=== PATIENT | female | born 1955 | race African-American/Black ===

== ENCOUNTER 2019-06-18 21:50 | Inpatient (IN) | payer MEDICARE ==
[~2019-06-18 21:50] MED LIST: Iopamidol-370 76% 500 ML 1 ML ONE
--- NOTE | 2019-06-18 22:10 | CT ---
CT BRAIN NONCONTRAST: DATE: 06/18/2019 HISTORY: 64-year-old female with acute stroke symptoms: Aphasia and right-sided weakness. This level 1 stroke alert protocol report was called by Dr. Dahl to nurse practitioner Demarco Brizuela, who is working with Dr. Lincoln, at 10:06 PM 06/18/2019. FINDINGS: There is no evidence of acute intra-axial or extra-axial hemorrhage. There is no midline shift or any other mass effect. There is no extra-axial fluid collection. There is no evidence of obstructive hydrocephalus. Calvarium is intact. IMPRESSION: No acute intracranial findings.
[2019-06-18 22:18] LABS: #Basophils 0.1 thou/uL (0.0-0.2); #Eosinphils 0.1 thou/uL (0.0-0.7); #Lymphocytes 3.2 thou/uL (1.20-3.40); #Monocytes 0.6 thou/uL (0.11-0.59); #Neutrophils 3.3 thou/uL (1.40-6.50); %Basophils 1.2 % (0.0-1.0); %Eosinophils 0.9 % (0.0-10.0); %Lymphocytes 44.3 % (21.0-51.0); %Monocytes 8.4 % (0.0-10.0); %Neutrophils 45.4 % (42.0-75.0); Mean Corpuscular HGB CONC 33.7 g/dL (32.0-36.0); Mean Corpuscular Hemoglobin 31.2 pg (27.0-31.0); Mean Corpuscular Volume 92.5 fL (78.0-98.0); Mean Platelet Volume 10.1 fL (7.4-10.4); Platelet Count 213 thou/uL (130-400); RBC Distribution Width 11.5 % (11.5-14.5); White Blood Cell (WBC) Count 7.2 thou/uL (4.8-10.8)
[2019-06-18 22:19] LABS: INR-International Normal Ratio 0.8; PTT 20.3 SEC (22.9-36.1); Prothrombin Time 11.3 SEC (12.0-14.7)
[2019-06-18 22:35] LABS: ALT (SGPT) 13 U/L (8-55); AST (SGOT) 17 U/L (5-34); Albumin 4.6 g/dL (3.4-4.8); Alkaline Phosphatase 270 U/L (40-110); Anion Gap 18 mmol/L (10-20); BUN (Urea Nitrogen) 19 mg/dL (9.8-20.1); Bilirubin, Total 0.4 mg/dL (0.2-1.2); Calc. Creatinine Clearance 0 mL/min (70-130); Calcium 9.2 mg/dL (7.8-10.44); Carbon Dioxide 21 mmol/L (23-31); Chloride 97 mmol/L (98-107); Digoxin Less than 0.15 ng/mL (0.8-2.0); Estimated GFR-MDRD 37; Glucose 529 mg/dL (80-115); Potassium 5.1 mmol/L (3.5-5.1); Protein, Total 7.6 g/dL (6.0-8.3); Sodium 131 mmol/L (136-145)
--- NOTE | 2019-06-18 22:36 | CT ---
CT ANGIOGRAM NECK WITH CONTRAST CT ANGIOGRAM BRAIN WITH CONTRAST: DATE: 06/18/2019 10:16 PM HISTORY: 64-year-old female with acute stroke symptoms: Aphasia and right upper extremity weakness Dr. Dahl verbally gave the results of this stroke alert protocol to Dr. Lincoln at 10:33 PM 06/18/2019 TECHNIQUE: After IV contrast injection, arterial bolus chasing technique scan performed from AP window to vertex of head. Coronal and sagittal 3-D MIP reconstructions. 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 No high-grade stenosis, thrombosis, or occlusion of M1 segments of bilater al MCAs, A1 and A2 segments of bilateral ACAs, carotid siphons, basilar, intracranial vertebral, P1 segment left ENGINEERED WOOD DESIGNER, and P2 segments of bilateral handyman. No high-grade stenosis of left subclavian, brachiocephalic, bilateral common carotid, bilateral cervi zac internal carotid, or bilateral cervical vertebral, arteries. IMPRESSION:
[2019-06-18] MEDS ORDERED: Nitroglycerin 2% Ointment 1 INCH/1 GM Packet ONE (22:51)
[2019-06-18] MEDS ORDERED: Labetalol HCl 100 MG/20 ML VIAL ONE (22:55)
[2019-06-18 23:33] LABS: Hemoglobin A1c Greater than 14.0 % (4.0-6.0)
[2019-06-19] MEDS ORDERED: Insulin Regular 300 UNITS/3 ML VIAL ONE (00:21)
[2019-06-19 02:03] VITALS: BMI 23.5
[2019-06-19] MEDS ORDERED: hydrALAZINE 20 MG/ML VIAL SLOW IVP PRN (02:12)
[2019-06-19] MEDS ORDERED: Docusate 100 MG CAP PO PRN (02:12)
[2019-06-19] MEDS ORDERED: Labetalol HCl 100 MG/20 ML VIAL SLOW IVP PRN (02:12)
[2019-06-19] MEDS ORDERED: Milk Of Magnesia 30 ML UDCUP PO PRN (02:12)
[2019-06-19] MEDS ORDERED: Acetaminophen 650 MG Suppository PR PRN (02:12)
[2019-06-19] MEDS ORDERED: Bisacodyl 10 MG SUPP PR PRN (02:12)
[2019-06-19] MEDS ORDERED: niCARdipine 25 MG in Sodium Chloride 0.9% 250 ML 240 ML IVPB PRN (02:12)
[2019-06-19] MEDS ORDERED: Mag-Al 1200 mg/1200 mg/30 ML UDCUP PO PRN (02:12)
[2019-06-19] MEDS ORDERED: Sodium Chloride 0.9% 1,000 ML IV SCH (02:15)
[2019-06-19] MEDS ORDERED: Dextrose 5% in Water 1,000 ML IV PRN (02:16)
[2019-06-19] MEDS ORDERED: Ondansetron PF 4 MG/2 ML Vial IVP PRN (02:16)
[2019-06-19] MEDS ORDERED: Ondansetron ODT 4 MG TAB PO PRN (02:16)
[2019-06-19] MEDS ORDERED: Insulin Regular 300 UNITS/3 ML VIAL SC PRN (02:16)
[2019-06-19] MEDS ORDERED: Dextrose 50% Abboject 50 ML SYRINGE SLOW IVP PRN (02:16)
[2019-06-19] MEDS: Insulin Regular 300 UNITS/3 ML VIAL SC PRN ×2 (04:27→08:24)
[2019-06-19] MEDS: Communication Order-Pharmacy FS SCH (04:29)
--- NOTE | 2019-06-19 04:29 | HP ---
PRIMARY CARE PHYSICIAN: [facility]. CHIEF COMPLAINT: Stroke-like symptoms. HISTORY OF PRESENT ILLNESS: The patient is a 64-year-old female with hypertension, diabetes mellitus type 2, TIA in 2014, currently on 81 mg aspirin, presented to the emergency room by EMS with above complaints. The patient's symptoms started around 08:30 p.m. She was unable to speak. She also had some confusion at that time. There were no other obvious deficits reported. Her initial NIH by EMS was around 8. There was no chest pain, shortness of breath, palpitations, fever, or chills reported. The patient has a long history of diabetes and is trying to bring her blood sugar down with herbal medications. No headaches, seizure, or visual symptoms reported. In the emergency room, initial vital signs showed temperature 98.4, respiration of 16, pulse of 107, with a blood pressure of 191/95, O2 saturation 100% on room air. CT brain was negative. CT angiogram of the brain was negative for high-grade stenosis. tPA was started. However, the family requested to discontinue tPA. PAST MEDICAL HISTORY: 1. Diabetes mellitus type 2. 2. Hypertension. 3. TIA in 2014. PAST SURGICAL HISTORY: Hysterectomy. ALLERGIES: NO KNOWN DRUG ALLERGIES. CURRENT HOME MEDICATIONS: 1. Multivitamin daily. 2. Aspirin 81 mg daily. SOCIAL HISTORY: The patient currently lives at home with her family. She is full code and makes her own decision with the help of her daughter. FAMILY HISTORY: Negative for premature coronary artery disease. REVIEW OF SYSTEMS: Limited due to current mentation. PHYSICAL EXAMINATION: VITAL SIGNS: As discussed above. GENERAL: A 64-year-old female, in no apparent distress. HEENT: Head, atraumatic and normocephalic. Sclerae anicteric. Moist mucous membranes. No oral lesion. Pupils were reacting to light appropriately. NECK: Supple. No JVD. No carotid bruit. LUNGS: Clear to auscultation bilaterally. No wheezing, rales, or rhonchi. HEART: S1 and S2 present. Regular rate and rhythm. No rubs or gallops. ABDOMEN: Soft, nontender. Bowel sounds present. No rebound or guarding. EXTREMITIES: No edema or calf tenderness. NEUROLOGIC: The patient is moving all of her extremities appropriately. Power was 5/5 in all extremities. She has expressive aphasia. There is intermittent confusion. Sensation to touch was generally diminished. PSYCHIATRY: As discussed above, the patient still has intermittent confusion. SKIN: Warm and dry. LYMPH NODES: No palpable lymph nodes in the neck. PERIPHERAL VASCULAR: Radial pulses palpable bilaterally. MUSCULOSKELETAL: No joint swelling or tenderness. LABORATORY FINDINGS: CBC showed WBC 7.2 with hemoglobin 15, hematocrit 44.4, platelet 213. Chemistry showed sodium 131, potassium 5.1, chloride 97, bicarb 21, BUN 19, creatinine 1.43, blood sugar was 529, A1c was greater than 14, alkaline phosphatase 270, AST, ALT, and total bilirubin in normal range. CT scan of the brain, by my review, as discussed above. EKG, by my review, showed sinus tachycardia without significant ST-T wave changes. IMPRESSION: 1. Acute cerebrovascular accident, status post tPA bolus. TPA was discontinued per family request. 2. Uncontrolled diabetes mellitus type 2 with hemoglobin A1c greater than 14. 3. Hyponatremia, probably secondary to hyperglycemia. 4. Chronic kidney disease, stage 3. 5. Medication noncompliance. 6. History of transient ischemic attack in 2014, on 81 mg aspirin. 7. Hypertension with hypertensive crisis. 8. Sinus tachycardia. PLAN: The patient will be monitored in the intensive care unit. We will continue to monitor closely. We will get echocardiogram as well as MRI of the brain in a.m. Neurology consultation. We will start 325 mg aspirin. We will discuss with Neurology if aspirin needs to be changed to either Aggrenox or Plavix. She is on 81 mg aspirin on a daily basis. We will also add statins. Insulin sliding scale. We will add NPH 10 units daily for now. The patient will also need insulin self-injection teaching. DVT and GI prophylaxis. The patient understands the above plan of care. Job ID: [id number]
[2019-06-19] MEDS: Sodium Chloride 0.9% 1,000 ML IV SCH ×3 (04:30→22:24)
[2019-06-19] MEDS: Famotidine 20 MG TAB PO SCH (08:23)
[2019-06-19] MEDS: Famotidine/PF 20 mg/2ml Vial SLOW IVP SCH (08:24)
[2019-06-19] MEDS: NPH, Human Insulin Isophane 300 UNIT/3 ML VIAL SC SCH (08:24)
[2019-06-19] MEDS: Acetaminophen 325 MG TAB PO PRN ×3 (08:42→21:32)
--- NOTE | 2019-06-19 10:53 | CT ---
CT OF THE BRAIN WITHOUT CONTRAST: COMPARISON: 06/18/2019. HISTORY: Stroke status post TTA. The patient initially presented with right-sided weakness. TECHNIQUE: Multiple contiguous axial images were obtained in a CT of the brain without contrast. FINDINGS: The brain is normal in morphology and attenuation without focal lesions or confluent areas of infarct ion. There is no evidence of hydrocephalus, intracranial hemorrhage, or extraaxial fluid collection. The calvarium and overlying soft tissues are unremarkable. The visualized paranasal sinuses and mast oid air cells are well aerated. IMPRESSION: No evidence of acute intracranial abnormality. POS: [facility]
--- NOTE | 2019-06-19 14:41 | CON ---
DATE OF CONSULTATION: 06/19/2019 HISTORY OF PRESENT ILLNESS: Ms. Jimenez is a very pleasant 64-year-old female, who has worked at [employer] for some time. She presented with confusion. She was given tPA partially, but then this was discontinued. She has had resolution of her symptoms. She is in the ICU now. PAST MEDICAL HISTORY: Remarkable for; 1. Diabetes. 2. Hypertension. 3. History of TIA. 4. Status post hysterectomy. SOCIAL HISTORY: She is a nonsmoker, nondrinker. FAMILY HISTORY: Negative for vascular disease or lung disease in early age. ALLERGIES: NO KNOWN DRUG ALLERGIES. REVIEW OF SYSTEMS: Otherwise negative. PHYSICAL EXAMINATION: VITAL SIGNS: Blood pressure 151/81, heart rate 74, respiratory rate is 18, oximetry 100%. HEAD & NECK: Unremarkable. LUNGS: Clear. HEART: Regular rhythm. S1 and S2 are normal. ABDOMEN: Soft and nontender. EXTREMITIES: Without clubbing, cyanosis, or edema. grossly nonfocal. LABORATORY DATA: White count 7.2, hemoglobin 15, platelets 213. Sodium 131, potassium 5.1, chloride 97, bicarb 21, creatinine 1.43, glucose 529. IMPRESSION: Resolving ischemic neurological deficit probably independent of the tPA. We will wait until tomorrow morning to do the MRI just so that she has time for evolution of any ischemic changes. Her initial CT of her brain was negative. Critical Care time 35 min. Job ID: [id number] MTDD
--- NOTE | 2019-06-19 15:57 | CON ---
DATE OF CONSULTATION: 06/19/2019 CONSULTING PHYSICIAN: Hospitalist Service. IMPRESSION: 1. Transient ischemic attack with transient expressive aphasia. 2. Diabetes. PLAN: 1. Aspirin and statin. 2. The patient can be discharged home after discretion. HISTORY OF PRESENT ILLNESS: Ms. Jimenez is a 64-year-old woman who presented to the emergency room with complaints of difficulty speaking. She had no focal motor deficits associated with this. Her initial CT scan was negative. Her CT angiogram was also clear. At first, they elected to proceed with tPA and after the bolus, she and her family declined further treatment. She has been moved to the intensive care unit. She has had some residual speech difficulty until about 9 o'clock this morning. She otherwise has passed her evaluations with Speech Therapy and Physical Therapy. She has no complaint of headache, nausea, vomiting, vertigo, double vision, blurred vision, chest pain, or shortness of breath. PAST MEDICAL HISTORY: Diabetes and hypertension. ALLERGIES: NONE REPORTED. SOCIAL HISTORY: No tobacco use. FAMILY HISTORY: Noncontributory. REVIEW OF SYSTEMS: Ten-system review of systems is otherwise negative. PHYSICAL EXAMINATION: VITAL SIGNS: Pulse 84 and a sinus rhythm, blood pressure 169/82, and saturations 100%. HEENT: Pupils equal and reactive. Conjunctivae clear. Oropharynx clear. NECK: Supple. EXTREMITIES: No cyanosis. NEUROLOGIC: She is alert and cooperative. Her speech is fluent and clear. Cranial nerves were intact. She has equal strength on both sides. Sensations intact to touch. Gait was not testable. No abnormal movements were seen. DIAGNOSTIC STUDIES: Echocardiogram showed 55% to 60% ejection fraction. Repeat CT scan of the brain was again negative. SUMMARY: This is a middle-aged woman with vascular risk factors for possible stroke. She had some transient speech difficulty, suggesting aphasia. She is doing well now. I agree with her workup and would be happy to follow up with her as an outpatient. Job ID: [id number]
[2019-06-19] MEDS ORDERED: Atorvastatin Calcium 40 MG TAB PO SCH (21:00)
[2019-06-20] MEDS: Communication Order-Pharmacy FS SCH (04:30)
[2019-06-20] MEDS: Sodium Chloride 0.9% 1,000 ML IV SCH ×2 (04:34→13:02)
[2019-06-20 04:41] LABS: #Basophils 0.1 thou/uL (0.0-0.2); #Eosinphils 0.1 thou/uL (0.0-0.7); #Lymphocytes 2.5 thou/uL (1.20-3.40); #Monocytes 0.4 thou/uL (0.11-0.59); #Neutrophils 3.2 thou/uL (1.40-6.50); %Basophils 1.6 % (0.0-1.0); %Eosinophils 0.9 % (0.0-10.0); %Lymphocytes 39.6 % (21.0-51.0); %Monocytes 7.1 % (0.0-10.0); %Neutrophils 50.8 % (42.0-75.0); Hemoglobin 12.2 g/dL (12.0-16.0); Mean Corpuscular HGB CONC 33.5 g/dL (32.0-36.0); Mean Corpuscular Hemoglobin 31.1 pg (27.0-31.0); Mean Corpuscular Volume 92.7 fL (78.0-98.0); Mean Platelet Volume 9.1 fL (7.4-10.4); Platelet Count 171 thou/uL (130-400); RBC Distribution Width 11.5 % (11.5-14.5); Red Blood Cell (RBC) Count 3.92 mill/uL (4.20-5.40); White Blood Cell (WBC) Count 6.3 thou/uL (4.8-10.8)
[2019-06-20 05:01] LABS: ALT (SGPT) 10 U/L (8-55); AST (SGOT) 12 U/L (5-34); Albumin 3.2 g/dL (3.4-4.8); Alkaline Phosphatase 98 U/L (40-110); Anion Gap 9 mmol/L (10-20); BUN (Urea Nitrogen) 6 mg/dL (9.8-20.1); Bilirubin, Total 0.6 mg/dL (0.2-1.2); Calc. Creatinine Clearance 64 mL/min (70-130); Calcium 8.4 mg/dL (7.8-10.44); Carbon Dioxide 22 mmol/L (23-31); Cardiac Risk 3.2 (Less than 4.5); Chloride 107 mmol/L (98-107); Cholesterol 198 mg/dl (< 200 Desired); Estimated GFR-MDRD 86; Globulin 2.2 g/dL (2.4-3.5); Glucose 208 mg/dL (80-115); HDL Cholesterol 62 mg/dL (>60 Neg Risk); LDL Cholesterol, Calculated 112 mg/dL; Magnesium 1.6 mg/dL (1.6-2.6); Potassium 3.4 mmol/L (3.5-5.1); Protein, Total 5.4 g/dL (6.0-8.3); Sodium 135 mmol/L (136-145); Triglycerides 120 mg/dL (Less than 150)
[2019-06-20] MEDS: Insulin Regular 300 UNITS/3 ML VIAL SC PRN ×2 (06:49→10:33)
[2019-06-20 07:23] VITALS: TEMP 97.9
[2019-06-20] MEDS: Acetaminophen 325 MG TAB PO PRN (08:53)
[2019-06-20] MEDS: Famotidine 20 MG TAB PO SCH (08:53)
[2019-06-20] MEDS: NPH, Human Insulin Isophane 300 UNIT/3 ML VIAL SC SCH (08:54)
[2019-06-20] MEDS ORDERED: Aspirin 325 mg Enteric Coated Tablet PO SCH (09:00)
[2019-06-20] MEDS ORDERED: Enoxaparin Sodium 40 MG/0.4 ML SYRINGE SC SCH (09:00)
[2019-06-20] MEDS ORDERED: Potassium Chloride 20 MEQ TAB PO SCH (10:00)
[2019-06-20] MEDS: Famotidine/PF 20 mg/2ml Vial SLOW IVP SCH (10:25)
[2019-06-20] MEDS ORDERED: hydrALAZINE 25 MG TAB PO SCH (12:00)
[2019-06-20 13:15] VITALS: BP 154/82
--- NOTE | 2019-06-20 13:48 | DIS ---
DATE OF ADMISSION: 06/19/2019 DATE OF DISCHARGE: 06/20/2019 PRIMARY CARE PROVIDER: Dr. Fatou Ahumada. DISCHARGE DIAGNOSES: 1. Acute cerebrovascular accident. 2. Hyponatremia. 3. Hypokalemia. 4. Uncontrolled diabetes mellitus. CONDITION OF PATIENT ON THE DAY OF DISCHARGE: Stable. I assessed Ms. Jimenez on the day of discharge. She denies any chest pain or shortness of breath. Vital signs are stable. S1 and S2 are heard, regular. Lungs are clear to auscultation bilaterally. DISCHARGE MEDICATIONS: 1. Metformin 1000 mg 2 times a day. 2. Aspirin 325 mg daily. 3. Lipitor 40 mg at bedtime. 4. Glipizide 5 mg daily. The patient has also been advised to discuss with her primary care provider regarding starting insulin therapy. HOSPITAL COURSE: Ms. Jimenez is a pleasant 64-year-old lady, who was admitted to [facility] on June 19, 2019, for ischemic CVA. She was started on tPA, but the tPA was subsequently discontinued per family's request. The patient showed dramatic recovery and her symptoms resolved. She was seen by Neurology Service, Dr. Kelly. She was advised aspirin and statin. Hemoglobin was greater than 14. I am starting her on glipizide in addition to her metformin, the patient has reportedly been noncompliant with her metformin use. I have also advised her to follow up with primary care provider within a day or so, since she will most likely need insulin therapy. A 2D echocardiogram showed normal left ventricular size and left ventricular ejection fraction of 55% to 60%. She was offered MRI, but the patient did not wish to have MRI. She is being discharged home in a stable condition. POST ACUTE CARE FOLLOWUP: With primary care provider in 1 day and with Neurology Service in 2 weeks. ACTIVITY: No restrictions. DIET: Diabetic and heart healthy. Many thanks for allowing me to participate in your patient's care. Please feel free to contact me with any questions or concerns. DISCHARGE DESTINATION: Home. TIME SPENT: Total amount of time spent coordinating this discharge: 31 minutes. ADDENDUM: Ms. Waldrons blood pressures were elevated during this hospitalization. She is being discharged home on hydralazine 25 mg four times a day and amlodipine 5 mg daily. She has been advised to check her blood pressure and heart rate 3 times a day and show the readings to her primary care provider for titration of her blood pressure medications. She may eventually need to be started on TUAN inhibitor or ARB because of her concomitant diabetes mellitus, but I have advised her to discuss the issue with her primary care provider. Job ID: [id number] STEVE
[2019-06-21] MEDS ORDERED: Amlodipine 5 MG TAB PO SCH (09:00)
--- NOTE | 2019-06-25 07:00 | PQF ---
MARCO KAYE DAVID [id number] CLINICAL DOCUMENTATION CLARIFICATION FORM: POST DISCHARGE Addendum to original discharge summary date: ____ Late entry note date: __ DATE: 06/25/2019 ATTN: Giovanni Martinez Please exercise your independent, professional judgment in responding to the clarification form. Clinical indicators are provided on the bottom of this form for your review Please check appropriate box(s): [ ] Encephalopathy: Etiology: [ ] Hypertensive [ ] Metabolic [ ] Toxic [ ] Other (please specify) [ x ] Transient Alteration of Awareness [ ] Other diagnosis [ ] Unable to determine For continuity of documentation, please document condition throughout progress notes and discharge summary. Thank You. CLINICAL INDICATORS - SIGNS / SYMPTOMS / LABS Laboratory POC Glucose 450; 311; 326; 115 Vital signs 06/18 BP 195/119, Pulse 109, Resp 19, temp 98.4 GCS 06/18 [id number] NIHSS 06/18 10 ED Notes p1 06/17 Patient presents for evaluation of mental status change H&P p1 06/18 Dr Paredes Chief complaint Stoke-like symptoms H&P p1 06/18 Dr Paredes The pt symptoms started around 8:30pm. She was unable to speak. She also had some confusion at that time H&P p1 06/18 Dr Paredes Has a long history of diabetes and is trying to bring her blood sugar down with herbal medications RISK FACTORS H&P p1 06/18 64 years old female H&P p1 06/18 Hx of TIA in 2014 H&P p2 06/18 Acute CVA s/p TPA H&P p2 06/18 CKD 3 H&P p2 06/18 Uncontrolled DM 2 H&P p2 06/18 Hyponatremia H&P p3 06/18 Medication noncompliance H&P p3 06/18 HTN with HTN crisis H&P p2 06/18 sinus tachycardia TREATMENTS: MAY 28 IVF NS 1L MAY 28 IV Nicardipine 250ml MAY 28 IV TPA 100mg MAY 28 IV D5W 1000mls MAY 27 Insulin 10 units sq Ordered brain MRI 06/18 Neuro consult 06/18 Sam Shaver Endo Consult 06/18 Santosh Dumont (This form is maintained as a part of the permanent medical record) 2014 [employer] All Rights Reserved [email or web address]
== END 2019-06-20 13:25 | disposition home or self-care (01) | DRG 61 ==
LOC: ERS 21:50 → CCU 06-19 00:02 → MERGE 06-19 00:02 → 2SE 06-20 01:44
PROVIDERS: ADMIT Internal Medicine; ATTEND Internal Medicine
DX: I63.9 Cerebral infarction, unspecified (principal); R40.2222 Coma scale, best verbal response, incomprehensible words, at arrival to emergency department; E87.1 Hypo-osmolality and hyponatremia; I16.9 Hypertensive crisis, unspecified; E11.65 Type 2 diabetes mellitus with hyperglycemia; E11.22 Type 2 diabetes mellitus with diabetic chronic kidney disease; N18.3 Chronic kidney disease, stage 3 (moderate); I12.9 Hypertensive chronic kidney disease with stage 1 through stage 4 chronic kidney disease, or unspecified chronic kidney disease; R00.0 Tachycardia, unspecified; E87.6 Hypokalemia; R40.4 Transient alteration of awareness; R47.01 Aphasia; R40.2362 Coma scale, best motor response, obeys commands, at arrival to emergency department; R40.2142 Coma scale, eyes open, spontaneous, at arrival to emergency department; R29.710 NIHSS score 10; Z90.710 Acquired absence of both cervix and uterus; Z79.82 Long term (current) use of aspirin; Z79.899 Other long term (current) drug therapy; Z86.73 Personal history of transient ischemic attack (TIA), and cerebral infarction without residual deficits; Z91.14 Patient's other noncompliance with medication regimen
CPT/HCPCS: 36415; 36416; 70450; 70496; 70498; 80053; 80061; 80162; 83036; 83735; 84484; 85025; 85610; 85730; 93005; 93306; 94760; 96361; 96372; 96374; 99292; J0360; J1650; J1815; J2997; Q9967